=== PATIENT | female | born 1945 | race Caucasian/White ===

== ENCOUNTER 2017-12-11 13:11 | Outpatient (CLI) | payer MEDICARE, BC ==
[2017-05-29 08:42] VITALS: O2SAT 99
== END 2017-12-11 13:12 | disposition home or self-care (01) | DRG 558 ==
LOC: CONVCARE 13:11
PROVIDERS: ATTEND Orthopaedic Surgery
DX: M70.72 Other bursitis of hip, left hip (principal)
CPT/HCPCS: 73502

== ENCOUNTER 2018-05-30 10:44 | Day surgery (SDC) | payer MEDICARE, BC ==
[2018-05-30] MEDS ORDERED: TRIAMCINOLONE ACETONIDE 40 MG/ML SUS ONE (11:16)
[2018-05-30] MEDS ORDERED: BUPIVACAINE HCL 0.25% MPF 30 ML SOL INFIL ONE (11:16)
[2018-05-30 11:46] VITALS: BP 112/75; PULSE 70; RESP 18; TEMP 97.6; O2SAT 98
== END 2018-05-30 12:06 | disposition home or self-care (01) | DRG 558 ==
LOC: SURG 10:44
PROVIDERS: ATTEND Nurse Anesthetist, Certified Registered
DX: M71.072 Abscess of bursa, left ankle and foot (principal)
CPT/HCPCS: 76000; J3300

== ENCOUNTER 2019-03-06 08:29 | Day surgery (SDC) | payer MEDICARE, BC ==
[2019-03-06] MEDS ORDERED: BUPIVACAINE HCL 0.25% MPF 30 ML SOL INFIL ONE (09:01)
[2019-03-06] MEDS ORDERED: TRIAMCINOLONE ACETONIDE 40 MG/ML SUS ONE (09:01)
[2019-03-06 09:12] VITALS: RESP 16
[2019-03-06 09:26] VITALS: BP 146/70; PULSE 79; TEMP 99.7; O2SAT 96
== END 2019-03-06 09:39 | disposition home or self-care (01) | DRG 558 ==
LOC: SURG 08:29
PROVIDERS: ATTEND Nurse Anesthetist, Certified Registered
DX: M70.72 Other bursitis of hip, left hip (principal)
CPT/HCPCS: J3300

== ENCOUNTER 2019-04-02 08:12 | Day surgery (SDC) | payer MEDICARE, BC ==
[2019-04-02 08:31] VITALS: TEMP 96.1
[2019-04-02] MEDS ORDERED: TRIAMCINOLONE ACETONIDE 40 MG/ML SUS ONE (09:00)
[2019-04-02] MEDS ORDERED: BUPIVACAINE HCL 0.25% MPF 30 ML SOL INFIL ONE (09:00)
[2019-04-02 09:25] VITALS: PULSE 72; RESP 18
[2019-04-02 09:36] VITALS: BP 94/63; O2SAT 97
== END 2019-04-02 09:46 | disposition home or self-care (01) | DRG 558 ==
LOC: SURG 08:12
PROVIDERS: ATTEND Nurse Anesthetist, Certified Registered
DX: M70.72 Other bursitis of hip, left hip (principal)
CPT/HCPCS: J3300